=== PATIENT | male | born 1985 | race Caucasian/White ===

== ENCOUNTER 2020-08-03 17:06 | Emergency (ER) | payer MEDICARE, OTHER ==
[2020-08-03 17:59] LABS: HEMOGLOBIN 13.8 gm/dl (14.0-17.5); RED BLOOD COUNT 4.61 M/UL (4.20-5.50); WHITE BLOOD COUNT 12.2 K/UL (4.5-11.0)
[2020-08-03 18:14] LABS: BUN/CREATININE RATIO 14 (0-10)
== END 2020-08-03 23:30 | disposition short-term general hospital (02) ==
LOC: ER1 17:06
PROVIDERS: Emergency Medicine
DX: R45.851 Suicidal ideations (principal); F32.9 Major depressive disorder, single episode, unspecified; J45.909 Unspecified asthma, uncomplicated; Z20.822 Contact with and (suspected) exposure to COVID-19; F90.9 Attention-deficit hyperactivity disorder, unspecified type; F17.200 Nicotine dependence, unspecified, uncomplicated
CPT/HCPCS: 0240U; 80053; 80307; 81001; 82550; 82553; 83874; 84484; 85025; 99285